=== PATIENT | male | born 1960 | race Caucasian/White ===

== ENCOUNTER 2018-08-09 22:32 | Emergency (ER) | payer BC ==
[~2018-08-09] VITALS: Ht 185.4 cm; Wt 115.7 kg
[2018-08-09] MEDS ORDERED: TAMS-3 PO (22:49)
[2018-08-09] MEDS ORDERED: TADALAFIL (22:49)
[2018-08-09] MEDS ORDERED: CEFD300C3 PO (22:55)
--- NOTE | 2018-08-09 23:12 | NUR ---
Patient discharged to home in stable conditon. Written and verbal after care instructions given. Patient verbalizes understanding of instructions. WALKED OUT OF ER WITH STEADY GAIT. NO DISTRESS NOTED
== END 2018-08-09 23:13 | disposition home or self-care (01) ==
LOC: ER 22:32
DX: S01.81XA Laceration without foreign body of other part of head, initial encounter (principal); H43.391 Other vitreous opacities, right eye; Z79.899 Other long term (current) drug therapy; W22.8XXA Striking against or struck by other objects, initial encounter; Y93.89 Activity, other specified; Y92.89 Other specified places as the place of occurrence of the external cause; Y99.8 Other external cause status
CPT/HCPCS: A4663